=== PATIENT | male | born 1965 | race Caucasian/White ===

== ENCOUNTER 2021-04-20 12:37 | Inpatient (IN) | payer BC ==
[~2021-04-20] VITALS: Ht 175.3 cm; Wt 91.4 kg
[~2021-04-20 12:37] MED LIST: Prinivil10 MG PO; ZYRTEC10 M1 PO
[2021-04-20 13:14] LABS: IMMATURE GRAN ABSOLUTE AUTO 0.03 K/mm3 (0.00-0.10); IMMATURE GRAN PERCENT AUTO 0 % (0-1); MONOCYTES PERCENT AUTO 7 % (4-13); RDW Coefficient Variation 12.3 % (11.7-14.2)
[2021-04-20 13:37] LABS: BASOPHILS ABSOLUTE AUTO 0.04 K/mm3 (0.00-0.23); BASOPHILS PERCENT AUTO 0 % (0-2); EOSINOPHILS ABSOLUTE AUTO 0.12 K/mm3 (0.00-0.68); EOSINOPHILS PERCENT AUTO 1 % (0-6); Hematocrit 46.6 % (37.0-53.0); LYMPHOCYTES ABSOLUTE AUTO 2.78 K/mm3 (0.84-5.20); LYMPHOCYTES PERCENT AUTO 26 % (21-46); Mean Corpuscular HGB 30.2 pg (26.0-34.0); Mean Corpuscular HGB Conc 34.3 g/dL (31.5-36.5); Mean Corpuscular Volume 88 fL (80-100); Mean Platelet Volume 10.6 fL (9.1-12.4); NEUTROPHILS ABSOLUTE AUTO 7.06 K/mm3 (1.96-9.15); NEUTROPHILS PERCENT AUTO 65 % (41-73); Platelet Count 262 K/mm3 (150-400); RDW Standard Deviation 39.8 fL (35.1-46.3); Red Blood Cell Count 5.29 M/mm3 (4.30-5.90); White Blood Cell Count 10.83 K/mm3 (4.00-11.30)
[2021-04-20 13:54] LABS: Albumin, Blood 4.6 g/dL (3.4-5.0); Albumin/Globulin Ratio 1.3 (0.8-1.8); Bilirubin, Total 0.5 mg/dL (0.1-1.0); Bun/Creatinine Ratio 31.3 (12.0-20.0); Creatinine, Blood 1.31 mg/dL (0.60-1.20); Globulin, Blood 3.6 g/dL (2.2-4.0); Potassium, Blood 4.3 mmol/L (3.5-5.5); Total Protein, Blood 8.2 g/dL (6.4-8.2); Troponin I 0.022 ng/mL (0.000-0.040)
[2021-04-20 17:03] LABS: Anti-Xa UFH, PHA Monitoring <0.10 IU/mL; International Normalized Ratio 1.09; Prothrombin Time Results 11.4 Sec (9.7-11.5)
[2021-04-21 04:25] LABS: BASOPHILS ABSOLUTE AUTO 0.02 K/mm3 (0.00-0.23); BASOPHILS PERCENT AUTO 0 % (0-2); EOSINOPHILS ABSOLUTE AUTO 0.06 K/mm3 (0.00-0.68); EOSINOPHILS PERCENT AUTO 1 % (0-6); Hematocrit 42.1 % (37.0-53.0); Hemoglobin 14.3 g/dL (13.5-17.5); IMMATURE GRAN ABSOLUTE AUTO 0.03 K/mm3 (0.00-0.10); IMMATURE GRAN PERCENT AUTO 0 % (0-1); LYMPHOCYTES ABSOLUTE AUTO 2.51 K/mm3 (0.84-5.20); LYMPHOCYTES PERCENT AUTO 22 % (21-46); MONOCYTES ABSOLUTE AUTO 1.07 K/mm3 (0.16-1.47); MONOCYTES PERCENT AUTO 9 % (4-13); Mean Corpuscular Volume 88 fL (80-100); Mean Platelet Volume 10.3 fL (9.1-12.4); NEUTROPHILS ABSOLUTE AUTO 7.97 K/mm3 (1.96-9.15); NEUTROPHILS PERCENT AUTO 68 % (41-73); Platelet Count 211 K/mm3 (150-400); RDW Coefficient Variation 12.8 % (11.7-14.2); RDW Standard Deviation 41.5 fL (35.1-46.3); Red Blood Cell Count 4.76 M/mm3 (4.30-5.90); White Blood Cell Count 11.66 K/mm3 (4.00-11.30)
[2021-04-21 05:09] LABS: Alanine Aminotransfer (ALT/SGP 42 U/L (12-78); Albumin/Globulin Ratio 1.1 (0.8-1.8); Alk Phos 57 U/L (50-136); Anion Gap 8 mmol/L (6-16); Aspartate Aminotrans (AST/SGOT 125 U/L (12-37); Bilirubin, Total 0.7 mg/dL (0.1-1.0); Blood Urea Nitrogen 36 mg/dL (8-24); Bun/Creatinine Ratio 31.9 (12.0-20.0); CHOL/HDL RATIO 2.5; CO2, Blood 28 mmol/L (21-32); Calcium, Blood 9.2 mg/dL (8.5-10.1); Chloride, Blood 103 mmol/L (98-108); Cholesterol 138 mg/dL (50-200); Creatinine, Blood 1.13 mg/dL (0.60-1.20); Globulin, Blood 3.5 g/dL (2.2-4.0); Glomerular Filtration Rate >60 (60-); Glucose, Blood 109 mg/dL (70-99); HDL Cholesterol 56 mg/dL (>39); LDL/HDL RATIO 1.3; Low Density Lipoprotein Chol 74 mg/dL (0-110); Potassium, Blood 3.8 mmol/L (3.5-5.5); Sodium, Blood 139 mmol/L (136-145); Total Protein, Blood 7.5 g/dL (6.4-8.2); Triglycerides 38 mg/dL (30-160); Very Low Density Lipoprot Chol 7 mg/dL (6-32)
[2021-04-21 07:50] LABS: Influenza A, PCR NEGATIVE (NEGATIVE); Influenza B, PCR NEGATIVE (NEGATIVE); Resp Syncytial Virus, PCR NEGATIVE (NEGATIVE); SARS-Cov-2 (COVID-19) PCR, MMC NEGATIVE (NEGATIVE)
--- NOTE | 2021-04-21 12:02 | NUR ---
Echocardiogram completed.
--- NOTE | 2021-04-21 12:24 | NUR ---
PATIENT ADMIT TO PCU AT 1140. ALERT AND ORIENTED X4. NEURO WNL. PERRLA. ABLE TO MOVE AL EXTREMITITES. IND. ABLE TO STAND AND TRANSFER FROM GURNEY TO BED. LUNGS SOUNDING CLEAR. TELE SHOWING SINUS RHYTHM WITH HR 90'S. DENIES CHEST PAIN/PRESSURE AT THIS TIME. NITRO PATCH TO LEFT CHEST WALL. STATES HE HAS SOME RESIDUAL ACHES IN RIGHT SHOUDLER FROM WHEN CHEST PAIN STARTED. DENIES ABDOMINAL PAIN/NAUSEA. HEPARIN INFUSING. VITAL SIGNS STABLE. HEART CENTER OVER TO GET PATIENT AT 1215 FOR ANGIOGRAM. PATIENT REMAINED NPO. ORIENTED TO ROOM AND UNIT.
--- NOTE | 2021-04-21 12:48 | NUR ---
PATIENT BROUGHT TO HEART CENTER RECOVERY ROOM IN PCU BED. PATIENT WAITING FOR DATA ARCHITECT MANAGER PROCEDURE. PATIENT A&O. RESTING EASILY. DENIES CHEST PAIN.
--- NOTE | 2021-04-21 19:24 | NUR ---
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 RIGHT RADIAL SITE WITH TR BAND IN PLACE. 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 NO SIGNS OF BLEEDING OR HEMATOMA UPON ARRIVAL TO ROOM. 1ML REMOVED AT 1800, 1815, AND 1830. TOTAL OF 3 ML REMOVED ON DAY SHIFT. VERY MINIMAL BLEEDING AT SITE. NO SIGNS OF HEMATOMA. STRONG RIGHT RADIAL PULSE AND PLETH ON BIOX. DENIES ANY PAIN AT SITE. SPOKE WITH DR. GOMES. ORDERS FOR AGGRASTAT TO CONTINUE FOR 8 HOURS AND TO BE STOPPED AT 0000. HEPARIN TO BE RESTARTED 6 HOURS POST TR BAND REMOVAL. WATCHING TR BAND CLOSELY FOR BLEEDING. ARM BOARD IN PLACE. POST ANGIO/RADIAL SITE EDUCATION PROVIDED TO PATIENT. SLEEPING ON AND OFF. ON ROOM AIR. TELE REMAINS UNCHANGED. EATING SMALL AMOUNTS OF DINNER. NAUSEA THIS EVENING, ZOFRAN GIVEN PER EMAR. CALL LIGHT IN REACH. DENIES NEEDS AT THIS TIME. REPORTED OFF TO GIOVANNY. AGGRASTAT AND RIGHT RADIAL CHECKED UPON SHIFT HAND OFF.
--- NOTE | 2021-04-21 22:57 | NUR ---
ASSUMED CARE OF PT AT 1900. A/OX4. R RADIAL TR BAND IN PLACE, SLOWLY BEING RECOVERED PT HAS AGGRASTAT GTT, DISTAL PULSES/CAP REFILL WNL. NO PAIN, CP/PRESSURE. VSS. SR ON TELE. RESP WNL. WILL DC AGGRASTAT AT 0000, AND BEGIN HEPARIN 6HRS POST TR BAND REMOVAL. WILL UPDATE CHANGES OCCUR.
--- NOTE | 2021-04-22 00:05 | NUR ---
AGGRASTAT DC'D AT 0000.
[2021-04-22 04:06] LABS: BASOPHILS ABSOLUTE AUTO 0.02 K/mm3 (0.00-0.23); BASOPHILS PERCENT AUTO 0 % (0-2); EOSINOPHILS ABSOLUTE AUTO 0.08 K/mm3 (0.00-0.68); EOSINOPHILS PERCENT AUTO 1 % (0-6); Hematocrit 43.5 % (37.0-53.0); Hemoglobin 14.6 g/dL (13.5-17.5); IMMATURE GRAN ABSOLUTE AUTO 0.02 K/mm3 (0.00-0.10); IMMATURE GRAN PERCENT AUTO 0 % (0-1); LYMPHOCYTES ABSOLUTE AUTO 1.85 K/mm3 (0.84-5.20); LYMPHOCYTES PERCENT AUTO 20 % (21-46); MONOCYTES ABSOLUTE AUTO 0.81 K/mm3 (0.16-1.47); MONOCYTES PERCENT AUTO 9 % (4-13); Mean Corpuscular HGB 30.4 pg (26.0-34.0); Mean Corpuscular HGB Conc 33.6 g/dL (31.5-36.5); Mean Corpuscular Volume 90 fL (80-100); Mean Platelet Volume 10.2 fL (9.1-12.4); NEUTROPHILS ABSOLUTE AUTO 6.39 K/mm3 (1.96-9.15); NEUTROPHILS PERCENT AUTO 70 % (41-73); Platelet Count 217 K/mm3 (150-400); RDW Coefficient Variation 12.9 % (11.7-14.2); RDW Standard Deviation 42.5 fL (35.1-46.3); Red Blood Cell Count 4.81 M/mm3 (4.30-5.90); White Blood Cell Count 9.17 K/mm3 (4.00-11.30)
[2021-04-22 04:35] LABS: Alanine Aminotransfer (ALT/SGP 55 U/L (12-78); Albumin, Blood 3.8 g/dL (3.4-5.0); Albumin/Globulin Ratio 1.2 (0.8-1.8); Alk Phos 55 U/L (50-136); Anion Gap 7 mmol/L (6-16); Aspartate Aminotrans (AST/SGOT 156 U/L (12-37); Bilirubin, Total 0.8 mg/dL (0.1-1.0); Blood Urea Nitrogen 28 mg/dL (8-24); Bun/Creatinine Ratio 25.5 (12.0-20.0); CO2, Blood 25 mmol/L (21-32); Calcium, Blood 9.3 mg/dL (8.5-10.1); Chloride, Blood 106 mmol/L (98-108); Globulin, Blood 3.2 g/dL (2.2-4.0); Glomerular Filtration Rate >60 (60-); Glucose, Blood 95 mg/dL (70-99); Potassium, Blood 4.2 mmol/L (3.5-5.5); Sodium, Blood 138 mmol/L (136-145)
--- NOTE | 2021-04-22 17:20 | NUR ---
PT SUMMARY: NO ACUTE CHANGE FOR THE SHIFT. PT WAS STARTED ON HEP GTT AT 0730 THIS AM AT 14U/KG/HR. VITALS HRR SR 70'S, BP SYSTOLIC 130'S, SATS ABOVE 95% ONRA, AFEBRILE. PT WAS C/O HEADACHE AT THE BEGINNING OF THE SHIFT WAS GIVEN TYLENOL AND ICE PACK ALSO NITRO PASTE WAS DC'D AND PT FELT MUCH BETTER AFTER. PT TO START AGGRASTAT AT 2300 TONIGHT FOR POSS ANGIO IN AM, NPO AT MIDNIGHT. PT AND AT BEDSIDE AWARE OF THE PLAN. PT USES URINAL FOR VOIDING, DENIES CHEST PAIN/PRESSURE. NO OTHER ISSUES REPORTED. PT PLEASANT AND COOPERATIVE, CALLS APPROPRIATELY PT IS CURRENTLY UP IN THE CHAIR WAITING FOR DINNER. WILL REPORT TO ONCOMING SHIFT
--- NOTE | 2021-04-23 05:25 | NUR ---
SHIFT SUMMARY PT DI NOT REST WELL THROUGH MOST OF NIGHT. ALERT AND ORIENTED, ABLE TO MAKE NEEDS KNOWN. COOPERATIVE WITH PLAN OF CARE. PT BEGAN TO C/O CHEST PAIN AT ABOUT 0100 - ATTEMPTED NITRO TABLETS, DID NOT HELP. THEN GAVE MORPHINE WITH SOME RELIEF THAT DID NOT LAST LONG. ESCALATOR CONSTRUCTOR GOT ORDER FOR X1 FENT PUSH AND EKG ORDER - NO UNEXPECTED CHANGES ON EKG. AFTER FENT, PT C/O MORE UNRELIEVED CHEST PAIN. RN CALLED CARDIOLOGY, RN INSTRUCTED TO ATTEMPT NITRO PASTE ON CHEST AND MORE FENTANYL TO KEEP PATIENT COMFORTABLE UNTIL HE HAS PROCEDURE TODAY. HEPARIN GTT RUNNING, AGGRASTAT RAN FROM [id number]. NO SIGNS OF BLEEDING. R RADIAL SITE C/D/I. SATS >95% ON ROOM AIR. TELE READS NSR - RATE 88 AT THIS TIME. VSS. CALL LIGHT WITHIN REACH, BED IN LOWEST POSITION. WILL CONTINUE TO MONITOR. NPO SINCE MIDNIGHT.
[2021-04-23 06:02] LABS: Anion Gap 11 mmol/L (6-16); Blood Urea Nitrogen 26 mg/dL (8-24); Bun/Creatinine Ratio 25.2 (12.0-20.0); CO2, Blood 23 mmol/L (21-32); Calcium, Blood 9.2 mg/dL (8.5-10.1); Chloride, Blood 104 mmol/L (98-108); Creatinine, Blood 1.03 mg/dL (0.60-1.20); Glomerular Filtration Rate >60 (60-); Glucose, Blood 90 mg/dL (70-99); Potassium, Blood 4.4 mmol/L (3.5-5.5); Sodium, Blood 138 mmol/L (136-145)
--- NOTE | 2021-04-23 14:14 | NUR ---
PATIENT ALERT AND ORIENTED X4. NEURO WNL. ON ROOM AIR. TELE SHOWING SINUS RHYTHM WITH HR 80-90'S. BP STABLE. DENIES ABDOMINAL PAIN/NAUSEA. USING URINAL AT BEDSIDE. HEPARIN INFUSING THIS AM PRIOR TO ANGIO WELL NS X1 BAG. MINIMAL CHEST PAIN THIS AM, PATIENT STATES IT WAS WORSE OVERNIGHT. PLAN FOR [facility] THIS AM. PREVIOUS RIGHT RADIAL SITE WNL. TEGADERM IN PLACE. NO DRAINAGE OR HEMATOMA. ARM BOARD IN PLACE. POST ANGIO. PATIENT BACK FROM [facility] AT 1315. RIGHT GROIN SITE. LAYING FLAT. EDUCATED ON POST ANGIO GROIN SITE PRECAUTIONS. PATIENT VERBALIZED EDUCATION BACK. POST VITALS IN PROGRESS AND CHECKING GROIN SITE Q15 MIN. ON SECOND GROIN SITE CHECK MORE DRAINAGE WAS NOTED THEN WHEN BROUGHT BACK FROM [facility]. COOK APPRENTICE IN TO CHECK. PRESSURE HELD FOR 15 MIN. DRESSING CHANGED AND SAND BAG IN PLACE TO HOLD PRESSURE. CHECKING SITE Q15 MIN. NO MORE DRAINAGE NOTED AT THIS TIME. NO HEMATOMA FELT. WILL CONTINUE TO MONITOR. AT BEDSIDE.
--- NOTE | 2021-04-23 18:03 | NUR ---
SHIFT SUMMARY: NO ACUTE CHANGES. PATIENT REMAINS ON ROOM AIR. NO CHANGES IN TELE. SEE PREVIOUS NOTE. DR. GOMES IN TO ASSESS GROIN SITE THIS EVENING. SITE REMAINS SOFT AND NONTENDER. OOZING AT SITE. DR. GOMES STATED THAT SITE MAY OOZE FOR 24 HOURS AND FOR PATIENT TO LAY FLAT FOR 6 HOURS. SITE OOZING SMALL AMOUNTS SAND BAG REMAINS IN PLACE Q30 CHECKS. AT BEDSIDE HELPING PATIENT EAT DINNER. USING URINAL IN BED WITH ASSISTANCE. VITAL SIGNS STABLE. POST OP VITALS COMPLETED. WILL CONTINUE TO MONITOR AND REPORT OFF.
--- NOTE | 2021-04-24 05:53 | NUR ---
SHIFT SUMMARY PT ALERT AND ORIENTED X 4. HR STABLE. BP STABLE. NO CP OR PRESSURE REPORTED. PT'S R RADIAL SITE WNL. PT'S R GROIN SITE OOZING. PHYSICIAN AWARE. DRESSING CHANGED TO SHAHBAZ DRESSING WITH TEGJESSICA VENTURA RN ASSESSED WELL. PT'S HOB ELEVATED BY 15 DEGREES Q 30 MIN BEGINNING AT 1930 PM. ONCE PT BEGAN TO HAVE MINIMAL OOZING AT SITE, SIZE OF A QUARTER. HOB DECREASED DOWN FLAT AND SAND BAG IN PLACE. PT ABLE TO SIT UP AT 90 DEGREES WITH NO OOZING BY 0300. DRESSING C/D/I. PULSES STRONG. 5 LB SAND BAG REMAINS IN PLACE ON GROIN SITE. WILL CONT TO MONITOR UNTIL REPORT GIVEN TO LEXX HERMOSILLO.
[2021-04-24] MEDS ORDERED: ATOR40TA PO (13:02)
[2021-04-24] MEDS ORDERED: ASPI81CH PO (13:02)
[2021-04-24] MEDS ORDERED: TICA90TA PO (13:03)
[2021-04-24] MEDS ORDERED: CARV3.125 PO (13:03)
[2021-04-24] MEDS ORDERED: NITR.4SL SL (13:04)
[2021-04-24] MEDS ORDERED: NAPR500 PO (13:07)
--- NOTE | 2021-04-24 14:14 | NUR ---
PT DISCHARGE TO HOME TODAY WITH DISCHARGE ORDERS. RIGHT RADIAL SITE AND GROIN SITE REMAINED INTACT FOR THE SHIFT, CARE INSTRUCTION AND NEW MEDICATIONS DISCLOSED WITH THE PT. TO FF-UP WITH PCP AND COURTESY CAR DRIVER PER INSTRUCTIONS. PT DENIED CHEST PAIN/DISCOMFORT VITALS HAS BEEN STABLE. PRESCRIPTION SENT TO [facility]. NO OTHER ISSUES ENCOUNTERED PRIOR TO DISCHARGE. ALL BELONGINGS SENT WITH THE PT. ACCOMPANIED VIA WHEELCHAIR FOR TRANSPORT
--- NOTE | 2021-04-24 15:19 | NUR ---
Late Note. Spiritual care visit conducted. Lilia immediately tells me that he is in the DC process and that he is just waiting for his ride. Patient talks about his heart issues and the actions taken to improve his health. He shares about how it was very scary for him and that he is thankful to be alive. He tells me that he is not bahai and that he had a "bad experience with jain" with his first . He did admit that he was thankful for all the love and prayers that came his way. He talks about looking forward to getting back to his work at [email or web address] and his recent (the last year) efforts of eating right and exercising and how he has lost 60lbs. I normalize his experience, and provide therapeutic listening and gentle grief counselor. Patient responds well and voices apprecitaion for the visit.
== END 2021-04-24 14:15 | disposition home or self-care (01) | DRG 247 ==
LOC: ER 12:37 → ERHOLD 17:01 → PCU 17:01 → ER 17:01 → PCU 04-21 11:40
PROVIDERS: Emergency Medicine; Family Medicine; Physician Assistant; ADMIT Internal Medicine
PROC: 4A023N6 Measurement of Cardiac Sampling and Pressure, Right Heart, Percutaneous Approach (ICD-10-PCS; principal; 2021-04-21)
PROC: B2111ZZ Fluoroscopy of Multiple Coronary Arteries using Low Osmolar Contrast (ICD-10-PCS; 2021-04-21)
PROC: 027036Z Dilation of Coronary Artery, One Artery with Three Drug-eluting Intraluminal Devices, Percutaneous Approach (ICD-10-PCS; 2021-04-23)
PROC: 02C03ZZ Extirpation of Matter from Coronary Artery, One Artery, Percutaneous Approach (ICD-10-PCS; 2021-04-23)
PROC: B2111ZZ Fluoroscopy of Multiple Coronary Arteries using Low Osmolar Contrast (ICD-10-PCS; 2021-04-23)
DX: I21.4 Non-ST elevation (NSTEMI) myocardial infarction (principal); N17.9 Acute kidney failure, unspecified; I10 Essential (primary) hypertension; G89.29 Other chronic pain; Z20.822 Contact with and (suspected) exposure to COVID-19; M13.88 Other specified arthritis, other site; Z79.899 Other long term (current) drug therapy; Z98.890 Other specified postprocedural states
CPT/HCPCS: 0241U; 36415; 71046; 76937; 80048; 80053; 80061; 83036; 83690; 84443; 84484; 85025; 85347; 85520; 85610; 92920; 92921; 92973; 93005; 93010; 93306; 93454; 94760; 96365; 96375; 99152; 99153; 99285-25; A9270; C1725; C1757; C1760; C1769; C1874; C1887; C1894; C9600; J1644; J2250; J2270; J2370; J2405; J3010; J3246; J7030; J7040; J7050; Q9967

== ENCOUNTER → 2023-10-04 | Outpatient (CLI) | payer BC ==
[~2023-10-04] MED LIST changes: +ASPI81CH PO; +ATOR40TA PO; +CARV3.125 PO; +NAPR500 PO; +NITR.4SL SL; +TICA90TA PO
[2023-10-04 15:12] LABS: BASOPHILS ABSOLUTE AUTO 0.03 K/mm3 (0.00-0.23); BASOPHILS PERCENT AUTO 0 % (0-2); EOSINOPHILS ABSOLUTE AUTO 0.16 K/mm3 (0.00-0.68); EOSINOPHILS PERCENT AUTO 2 % (0-6); Hemoglobin 15.6 g/dL (13.5-17.5); IMMATURE GRAN ABSOLUTE AUTO 0.02 K/mm3 (0.00-0.10); IMMATURE GRAN PERCENT AUTO 0 % (0-1); LYMPHOCYTES ABSOLUTE AUTO 2.99 K/mm3 (0.84-5.20); LYMPHOCYTES PERCENT AUTO 41 % (21-46); MONOCYTES ABSOLUTE AUTO 0.84 K/mm3 (0.16-1.47); MONOCYTES PERCENT AUTO 11 % (4-13); Mean Corpuscular HGB 31.3 pg (26.0-34.0); Mean Corpuscular HGB Conc 34.7 g/dL (31.5-36.5); Mean Corpuscular Volume 90 fL (80-100); Mean Platelet Volume 10.4 fL (9.1-12.4); NEUTROPHILS PERCENT AUTO 45 % (41-73); Platelet Count 192 K/mm3 (150-400); RDW Coefficient Variation 12.8 % (11.7-14.2); RDW Standard Deviation 41.9 fL (35.1-46.3); Red Blood Cell Count 4.99 M/mm3 (4.30-5.90); White Blood Cell Count 7.34 K/mm3 (4.00-11.30)
[2023-10-04 15:27] LABS: Albumin, Blood 4.1 g/dL (3.4-5.0); Bilirubin, Total 0.5 mg/dL (0.1-1.0); Bun/Creatinine Ratio 31.1 (12.0-20.0); Calcium, Blood 9.4 mg/dL (8.5-10.1); Creatinine, Blood 1.03 mg/dL (0.60-1.20); Potassium, Blood 4.1 mmol/L (3.5-5.5); Total Protein, Blood 8.1 g/dL (6.4-8.2)
== END | disposition home or self-care (01) ==
LOC: LAB SHORT 15:08
PROVIDERS: Chiropractor
DX: K92.2 Gastrointestinal hemorrhage, unspecified (principal)
CPT/HCPCS: 80053; 83690; 85025

== ENCOUNTER 2023-11-06 07:45 | Day surgery (SDC) | payer BC ==
[~2023-11-06] VITALS: Ht 175.3 cm; Wt 104.3 kg
[~2023-11-06 07:45] MED LIST changes: +Lactated Ringer's 1,000 ML IV ONE; +propofoL 50 ML IV ONE
[2023-11-06] MEDS ORDERED: CENTRUM SILVER1 EAC2 (08:06)
[2023-11-06] MEDS ORDERED: CLOPIDOGREL300 M1 (08:06)
[2023-11-06] MEDS ORDERED: Lactated Ringer's 1,000 ML IV ONE (08:30)
[2023-11-06 10:08] VITALS: BP 139/100
== END 2023-11-06 10:04 | disposition home or self-care (01) ==
LOC: ORSCSDS 07:45
PROVIDERS: Internal Medicine Gastroenterology
PROC: 0DJ08ZZ Inspection of Upper Intestinal Tract, Via Natural or Artificial Opening Endoscopic (ICD-10-PCS; principal; 2023-11-06 09:00)
DX: K92.0 Hematemesis (principal); K21.9 Gastro-esophageal reflux disease without esophagitis; I25.2 Old myocardial infarction; Z79.02 Long term (current) use of antithrombotics/antiplatelets; Z79.82 Long term (current) use of aspirin; Z79.899 Other long term (current) drug therapy
CPT/HCPCS: J2704; J7120